=== PATIENT | female | born 1980 | race Hispanic/Latino ===

== ENCOUNTER 2018-01-13 11:26 | Inpatient (IN) | payer MEDICAID ==
[2018-01-13] MEDS ORDERED: BRETHINE SUB-Q PRN (12:52)
[2018-01-13] MEDS ORDERED: XYLOCAINE 2% INFILTRATI ONE (12:52)
[2018-01-13] MEDS ORDERED: PITOCin/NS 20 UNIT/1000ML DRIP 20 UNITS/1,000 ML BAG IV SCH (13:00)
[2018-01-13] MEDS ORDERED: PITOCin/NS 30 UNIT/500ML 30 UNITS/500 ML BAG IV SCH (13:00)
--- NOTE | 2018-01-13 13:02 | History and Physical Report ---
History of Present Illness Date of examination: 01/13/18 Date of admission: 01/13/18 11:26 Chief complaint: Leaking of fluid from vagina since 10:16 am. History of present illness: 37 year old female presents to L&D for complaint of leaking "split pea" fluid from vagina since 10:16 this morning. Patient reports contractions started shortly after the leaking of fluid. Patient denies vaginal bleeding. Patient has received care at [facility] and records are available. LMP 04/21/17. EDC 01/26/18. EGA 38 weeks, 1 day gestation. has been complicated by the following: Late entry to care, advanced maternal age (age 37 years), breast cancer survivor (had double mastectomy and chemo in 2011; sees specialist regularly). labs are as follows: A+, antibody screen negative, pap normal, rubella immune, RPR nonreactive, hepatitis B surface antigen negative, HIV negative, hemoglobin electrophoresis AA, gonorrhea negative, chlamydia negative, Informaseq negative, sugar test 128, GBS negative. 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 denies: alcohol abuse, prescription drug abuse, IV drug use - Obstetrical History Expected Date of Delivery: 01/26/18 Actual Gestation: 38 Week(s) 1 Day(s) : 2 Para: 0 Hx # Term Pregnancies: 1 Number of Pregnancies: 0 Spontaneous Abortions: 1 Induced : 0 Number of Living Children: 0 Medications and Allergies Allergies Allergy/AdvReac Type Severity Reaction Status Date / Time No Known Allergies Allergy Verified 01/13/18 12:35 Review of Systems All systems: negative (leaking of "pea soup" fluid from vagina) - Physical Exam Cardiovascular: Regular rate, Normal S1, Normal S2 Lungs: Positive: Clear to auscultation Abdomen: Positive: normal appearance, soft. Negative: distention, tenderness, guarding, rigidity Genitourinary (Female): Positive: normal external genitalia, normal perenium. Negative: perineal/vulvar lesions Vagina: Positive: other (small amount of greenish brown amniotic fluid noted in vagina; fern test positive) Uterus: Positive: enlarged. Negative: nodular, tender Anus/Rectum: Positive: normal perianal skin Extremities: Positive: normal. Negative: tenderness, edema - Obstetrical FHR: category 1 Uterine Contraction Monitor Mode: Palpation Cervical Dilatation: 2 Cervical Effacement Percentage: 80 station: -2 Uterine Contraction Pattern: Irregular Uterine Contraction Intensity: Mild Results All other labs normal. Assessment and Plan A: at 38 weeks, 1 day gestation. Spontaneous rupture of membranes, meconium. GBS negative. P: Admit. Augment labor. Anticipate vaginal delivery. Discussed with patient risks and benefits of Pitocin augmentation of labor. Patient consented to Pitocin augmentation of labor.
[2018-01-13] MEDS: LACTATED RINGERS 1,000 ML IV SCH ×3 (13:42→20:57)
[2018-01-13 14:00] LABS: Hematocrit 32.7 % (30.3-42.9); Hemoglobin 10.7 gm/dl (10.1-14.3); Mean Corpuscular HGB Conc 33 % (30-34); Mean Corpuscular Hemoglobin 28 pg (28-32); Mean Corpuscular Volume 85 fl (79-97); Platelet Count 262 K/mm3 (140-440); Red Blood Count 3.86 M/mm3 (3.65-5.03); Red Cell Distribution Width 14.3 % (13.2-15.2)
[2018-01-13] MEDS: SUBLIMAZE IV PRN (17:15)
[2018-01-13] MEDS ORDERED: ZOFRAN IV PRN (17:21)
[2018-01-13] MEDS ORDERED: NARCAN 2 MG/2 ML IV PRN (19:42)
--- NOTE | 2018-01-13 19:43 | Anesthesia Consultation ---
Anesthesia Consult and Med Hx Date of service: 01/13/18 - Airway Anesthetic Teeth Evaluation: Good ROM Head & Neck: Adequate Mental/Hyoid Distance: Adequate Mallampati Class: Class II Intubation Access Assessment: Probably Good - Pulmonary Exam CTA: Yes - Cardiac Exam Cardiac Exam: RRR - Pre-Operative Health Status ASA Pre-Surgery Classification: ASA1 Proposed Anesthetic Plan: Epidural, Spinal - Pulmonary Hx Smoking: No Hx Asthma: No COPD: No - Cardiovascular System Hx Hypertension: No Hx Heart Attack/AMI: No - Central Nervous System Hx Neuromuscular Disorder: No Hx Seizures: No CVA: No - Endocrine Hx Renal Disease: No Hx Liver Disease: No Hx Thyroid Disease: No - Hematic Hx Anemia: Yes
[2018-01-13] MEDS: fentaNYL-BUPIV 2 MCG/ML-0.125% 200 MCG/100 ML BAG EPIDURAL SCH (20:20)
[2018-01-14] MEDS ORDERED: XYLOCAINE MPF 2% ONE ×5 (00:13→08:30)
[2018-01-14] MEDS: SUBLIMAZE IV PRN ×2 (00:23→02:14)
--- NOTE | 2018-01-14 03:03 | Event Note ---
Date: 01/14/18 Patient became complete and rested as she was comfortable with epidural. Patient then pushed for approximately 1 hour and 30 minutes and has brought head down to +2 station. Patient reports vaginal pressure and pain and having difficulty coping with the pain. Patient experiencing exhaustion and states she is hurting too bad to push. Epidural redosed and pain medication given IV. Dr. Guevara notified to come be present for patient's due to deep variable FHR decelerations into 50s and maternal exhaustion. Will allow patient to push again when Dr. Guevara is present if OK with patient and MD. Variability remains moderate and FHR baseline normal rate.
[2018-01-14] MEDS: LACTATED RINGERS 1,000 ML IV SCH ×2 (03:53→18:00)
[2018-01-14] MEDS: fentaNYL-BUPIV 2 MCG/ML-0.125% 200 MCG/100 ML BAG EPIDURAL SCH (06:22)
[2018-01-14] MEDS ORDERED: REGLAN ONE (08:10)
[2018-01-14] MEDS ORDERED: ANCEF/STERILE WATER 2 GM/20 ML 2 GM/20 ML SYRINGE IV ONE ×2 (08:10→08:22)
[2018-01-14] MEDS ORDERED: BICITRA ONE (08:10)
[2018-01-14] MEDS ORDERED: PEPCID IV ONE ×2 (08:10→13:42)
--- NOTE | 2018-01-14 08:14 | Anesthesia Day of Surgery ---
Anesthesia Day of Surgery - Day of Surgery Patient Examined: Yes Patient H&P Reviewed: Yes Patient is NPO: Yes
--- NOTE | 2018-01-14 08:24 | Progress Note ---
Assessment and Plan - Patient Problems (1) 38 weeks gestation of Current Visit: Yes Status: Acute (2) Active labor Current Visit: Yes Status: Acute (3) Meconium in amniotic fluid Current Visit: Yes Status: Acute (4) Maternal exhaustion complicating labor and delivery Current Visit: Yes Status: Acute Plan to address problem: Patient did not want to continue pushing. She asked for a C/section. Risks, benefits, and alternatives of the procedure were discussed in detail with her such as infection, hemorrhage requiring blood transfusion, injury to the bowel, bladder and blood vessels. She expressed understanding, her questions were answered, she gave her informed consent. Continue monitoring. Anesthesia has been notified. Keep NPO. Subjective - Subjective Date of service: 01/14/18 Principal diagnosis: SIUP at 39 weeks in active labor Interval history: Patient is 37 year old , eDC 01/26/18 at 38 weeks and 2 days gestation who was admitted with SROM and early labor. She became fully dilated at around 11 PM but she did not start pushing until an hour later. During the pushing, there were occasional variables which recovered to baseline and with good beat- to-beat variability. She felt exhausted and stopped pushing for several hours. During the period of rest, tracing has been CAT1. I came to evaluate the patient. The tracing was reactive. Cervix was fully dilated and the vertex was posterior. I encouraged her to resume pushing. The head was at +1 to +2 station and she felt too exhausted to push. Kiwi vacuum was applied twice for 10 seconds. After that, the patient said that she was done pushing and asked for a C/section. She was encouraged to try a few more pushes to deliver the baby but she refused and said that she did not want to feel the pain anymore. At that time, she gave her consent for c/section. Objective - Vital Signs Vital Signs: Vital Signs - 12hr 01/13/18 01/13/18 01/13/18 20:19 20:21 20:37 Temperature Pulse Rate 74 69 72 Respiratory Rate Blood Pressure 123/70 122/55 118/69 O2 Sat by Pulse Oximetry 01/13/18 01/13/18 01/13/18 20:52 20:57 21:02 Temperature Pulse Rate 66 76 68 Respiratory Rate Blood Pressure 121/63 O2 Sat by Pulse 99 99 98 Oximetry 01/13/18 01/13/18 01/13/18 21:07 21:12 21:17 Temperature Pulse Rate 74 92 H 89 Respiratory Rate Blood Pressure 121/78 O2 Sat by Pulse 98 98 99 Oximetry 01/13/18 01/13/18 01/13/18 21:22 21:27 21:32 Temperature Pulse Rate 67 65 94 H Respiratory Rate Blood Pressure 134/69 O2 Sat by Pulse 99 99 99 Oximetry 01/13/18 01/13/18 01/13/18 21:37 21:42 21:47 Temperature Pulse Rate 86 83 78 Respiratory Rate Blood Pressure 142/66 O2 Sat by Pulse 99 98 98 Oximetry 01/13/18 01/13/18 01/13/18 21:51 21:52 21:57 Temperature Pulse Rate 87 95 H 98 H Respiratory Rate Blood Pressure 115/90 O2 Sat by Pulse 93 98 98 Oximetry 01/13/18 01/13/18 01/13/18 22:06 22:21 22:36 Temperature Pulse Rate 102 H 118 H 72 Respiratory Rate Blood Pressure 141/69 132/79 130/73 O2 Sat by Pulse Oximetry 01/13/18 01/13/18 01/13/18 22:51 23:07 23:21 Temperature Pulse Rate 75 93 H 73 Respiratory Rate Blood Pressure 129/77 135/73 136/80 O2 Sat by Pulse Oximetry 01/13/18 01/14/18 01/14/18 23:36 00:22 00:37 Temperature Pulse Rate 76 104 H 96 H Respiratory Rate Blood Pressure 143/82 168/77 159/88 O2 Sat by Pulse Oximetry 01/14/18 01/14/18 01/14/18 00:51 01:00 01:08 Temperature 98.7 F Pulse Rate 88 96 H Respiratory 24 Rate Blood Pressure 150/69 139/80 O2 Sat by Pulse Oximetry 01/14/18 01/14/18 01/14/18 02:08 02:23 02:37 Temperature Pulse Rate 79 77 69 Respiratory Rate Blood Pressure 140/78 135/72 138/75 O2 Sat by Pulse Oximetry 01/14/18 01/14/18 01/14/18 02:52 03:08 03:52 Temperature Pulse Rate 78 77 56 L Respiratory Rate Blood Pressure 115/64 125/61 210/135 O2 Sat by Pulse Oximetry 01/14/18 01/14/18 01/14/18 03:54 03:59 04:04 Temperature Pulse Rate 92 H 107 H 125 H Respiratory Rate Blood Pressure O2 Sat by Pulse 97 97 98 Oximetry 01/14/18 01/14/18 01/14/18 04:07 04:09 04:14 Temperature Pulse Rate 107 H 120 H 141 H Respiratory Rate Blood Pressure 142/70 O2 Sat by Pulse 98 97 Oximetry 01/14/18 01/14/18 01/14/18 04:21 04:36 04:52 Temperature Pulse Rate 123 H 116 H 109 H Respiratory Rate Blood Pressure 136/64 124/57 117/60 O2 Sat by Pulse Oximetry 01/14/18 01/14/18 01/14/18 05:00 05:06 05:21 Temperature 98.7 F Pulse Rate 110 H 97 H Respiratory 22 Rate Blood Pressure 110/54 119/57 O2 Sat by Pulse Oximetry 01/14/18 01/14/18 01/14/18 05:37 05:53 06:00 Temperature 98.3 F Pulse Rate 96 H 83 Respiratory 18 Rate Blood Pressure 114/55 108/53 O2 Sat by Pulse Oximetry 01/14/18 01/14/18 01/14/18 06:06 06:36 06:52 Temperature Pulse Rate 84 104 H 98 H Respiratory Rate Blood Pressure 108/55 140/74 137/69 O2 Sat by Pulse Oximetry 01/14/18 01/14/18 07:06 08:08 Temperature Pulse Rate 118 H 112 H Respiratory Rate Blood Pressure 126/60 139/83 O2 Sat by Pulse Oximetry - Exam Cardiovascular: Normal S1, Normal S2 Lungs: Clear to auscultation Vulva: both: normal FHR: category 1 Uterine Contraction Monitor Mode: External Cervical Dilatation: 10 Cervical Effacement Percentage: 100 station: +1 to +2 Uterine Contraction Pattern: Regular Uterine Contraction Intensity: Strong/Firm Deep Tendon Reflex Grade: Normal +2 - Labs Labs: Abnormal Labs 01/13/18 13:16 WBC 11.8 H Laboratory Results - last 24 hr 01/13/18 01/13/18 13:16 13:16 WBC 11.8 H RBC 3.86 Hgb 10.7 Hct 32.7 MCV 85 MCH 28 MCHC 33 RDW 14.3 Plt Count 262 Blood Type A POSITIVE Antibody Screen Negative - Results US- obstetric: report reviewed
[2018-01-14] MEDS ORDERED: DIPRIVAN 10 MG/ML IV ONE (08:48)
[2018-01-14] MEDS ORDERED: QUELICIN ONE ×2 (08:48→08:49)
[2018-01-14] MEDS ORDERED: VERSED ONE (09:07)
[2018-01-14] MEDS ORDERED: DILAUDID ONE ×2 (09:11→10:27)
[2018-01-14] MEDS ORDERED: DECADRON ONE (09:25)
[2018-01-14] MEDS ORDERED: ZOFRAN ONE (09:25)
[2018-01-14] MEDS ORDERED: MORPHINE ONE ×2 (09:40)
[2018-01-14] MEDS ORDERED: TORADOL ONE (09:52)
[2018-01-14] MEDS ORDERED: TORADOL IV PRN ×2 (09:56)
[2018-01-14] MEDS ORDERED: LANSINOH TP PRN (09:56)
[2018-01-14] MEDS ORDERED: NARCAN 0.4 MG/1 ML IV PRN ×2 (09:56→10:20)
[2018-01-14] MEDS ORDERED: ZOFRAN IV PRN (09:56)
[2018-01-14] MEDS ORDERED: TYLENOL PO PRN (09:56)
[2018-01-14] MEDS ORDERED: NACL 0.9% 1000 ML 1,000 ML ONE (09:56)
[2018-01-14] MEDS ORDERED: TUCKS PAD TP PRN (09:56)
[2018-01-14] MEDS ORDERED: LACTATED RINGERS 1,000 ML ONE (09:56)
[2018-01-14] MEDS ORDERED: SODIUM CHLORIDE FLUSH SYRINGE 10 ML IV NR ×2 (10:00→11:00)
[2018-01-14] MEDS ORDERED: PITOCin/NS 20 UNIT/1000ML DRIP 20 UNITS/1,000 ML BAG IV SCH (10:00)
[2018-01-14] MEDS ORDERED: DILAUDID IV PRN (10:20)
--- NOTE | 2018-01-14 10:51 | Post Anesthesia Evaluation ---
- Post Anesthesia Evaluation Patient Participated: Yes Airway Patent: Yes Stable Respiratory Function: Yes Nausea/Vomiting: No Temp > 96.8F: Yes Pain Manageable: Yes Adequeate Hydration: Yes Anesthesia Complications: No Block Receding Appropriately: Yes Patient on Ventilator: No
[2018-01-14] MEDS ORDERED: DILAUDID PCA 6MG/30ML IV PRN (11:00)
--- NOTE | 2018-01-14 11:34 | Operative Report ---
Operative Report Operative Report: Preoperative diagnosis: 1. SIUP at 38 weeks and 2 days gestation in active labor. 2. Maternal exhaustion. 3. Meconium amniotic fluid. Postoperative diagnosis: Same as preoperative diagnosis. Procedure: Primary low-transverse section. Surgeon: Dr. Guevara Hotel Receptionist: Sherri Boswell. Anesthesia: general EBL: 1200 cc IVF: 1500 cc of RL Urine: 100 cc clear. Complications: none Intraoperative findings: 1. Male infant delivered at 8:58 PM, Apgars 1 at 1 minute, 7 at 5 minutes, and 8 at 10 minutes, Weight 6 lbs. 13 oz. 2. Normal fallopian tubes and ovaries bilaterally. Procedure details: The risks, benefits, and alternatives of the procedure were discussed in detail with the patient which included but not limited to the risk of infection, hemorrhage requiring blood transfusion, injury to the bowel or bladder and blood vessels. The patient expressed understanding, her questions were answered , and she gave informed consent. The patient was taken to the operating room with an IV fluid infusing ringer's lactate and a Kaminski catheter in place. In the operating room, she was placed in the dorsal supine position and loaded with epidural anesthesia. Venodyne boots were placed. The abdomen was washed and she was prepared and draped in usual sterile fashion. Upon testing the abdomen, the epidural was not working and patient felt pain. The decision to proceed with general anesthesia was made. After general anesthesia was given, a Pfannenstiel skin incision was made in the lower abdomen about 2 cm above the pubic symphysis using the scalpel. This incision was carried down to the underlying fascia using the Bovie. The fascia was opened bilaterally in a curvilinear fashion using the Bovie. 2 straight Kocker clamps were used to grasp the upper edge of the fascia from which the underlying rectus abdominis muscle was dissected off using the Bovie. A similar procedure was done with lower edge of the fascia to dissect the underlying rectus abdominis muscle. The muscle was from the midline by putting. The parietal peritoneum was grasped with 2 hemostat clamps and entered sharply using Metzenbaum scissors. A quick survey of the anatomy revealed a gravid uterus, normal fallopian tubes and ovaries bilaterally. A bladder flap was created. Reynold'O retractor was placed in the incision for proper visualization. A low transverse incision was made in the lower uterine segment using the scalpel and extended bilaterally in a curvilinear fashion using bandage scissors. There was scant amount of meconium amniotic fluid as the membranes has been ruptured during the labor. The infant was found in an RADHA position with the vertex located at + 1 station. Assistance was needed to push the vertex upwards and the head was delivered atraumatically. There was nuchal cord 2 which were reduced. That was followed by the delivery of the shoulders and rest of the body at 8:58 AM. The cord was clamped 2 and cut and the infant was handed off to the waiting pediatricians. Cord gas was sent. Cord blood was collected. The infant was a male, Apgars were 1 at 1 minute, 7 at 5 minutes, and 8 at 10 minutes, weight was 6 lbs. 13 oz. The placenta was delivered manually and it was complete with a three- vessel cord. The uterine cavity was cleaned of clots and debris using dry lap sponges. The uterine incision was repaired in a running locked fashion using 0 Vicryl sutures. A second layer of imbrication was placed. The gutters were cleaned of clots and debris using dry lap sponges. After assuring adequate hemostasis, the instruments were removed from the abdominal cavity. The fascia was closed in a running fashion using 0 Vicryl sutures. The subcutaneous adipose tissue was closed with 2 chromic sutures. The skin was closed in a subcutaneous fashion using 4-0 Vicryl on a Leif needle. Sterile dressing was placed. The counts of laps, needles, sponges, and instruments were correct 2. The patient tolerated the procedure well. She was awakened from the anesthesia and taken to the recovery room in stable condition.
[2018-01-14] MEDS ORDERED: BICITRA PO ONE (13:42)
[2018-01-14] MEDS ORDERED: REGLAN IV ONE (13:42)
[2018-01-14] MEDS ORDERED: ANCEF/STERILE WATER 2 GM/20 ML 2 GM/20 ML SYRINGE IV NR (14:00)
[2018-01-14 20:54] LABS: Hematocrit 23.9 % (30.3-42.9); Hemoglobin 7.6 gm/dl (10.1-14.3)
[2018-01-15] MEDS ORDERED: MYLICON PO PRN (09:56)
[2018-01-15] MEDS ORDERED: MILK OF MAGNESIA PO PRN (09:56)
[2018-01-15] MEDS ORDERED: SENOKOT PO PRN (09:56)
[2018-01-15] MEDS: FEOSOL PO SCH (12:08)
[2018-01-15] MEDS: MOTRIN PO PRN (13:28)
[2018-01-15] MEDS: PERCOCET 5/325 PO PRN ×2 (13:28→22:12)
--- NOTE | 2018-01-15 19:18 | Progress Note ---
Assessment and Plan - Patient Problems (1) S/P primary low transverse Current Visit: Yes Status: Acute Plan to address problem: POD 1 - stable Continue routine postop orders Ambulation encouraged, as tolerated Anticipate d/c in 24 to 48 hours (2) Anemia in puerperium, baby delivered during current episode of care Current Visit: Yes Status: Acute Plan to address problem: Asymptomatic Continue iron therapy Subjective - Subjective Date of service: 01/15/18 Principal diagnosis: POD #1; s/p Primary LTCS Patient reports: appetite normal, voiding normally, pain well controlled, flatus , ambulating normally, no dizzy ambulation, no bowel movement : doing well, bottle feeding Objective - Vital Signs Latest vital signs: Vital Signs Temp Pulse Resp BP BP Pulse Ox 01/15/18 16:33 98.3 F 75 20 98/64 97 01/15/18 13:28 20 01/15/18 08:08 98.6 F 84 20 97/53 94 01/15/18 04:40 98.9 F 78 20 126/76 01/15/18 02:00 18 01/15/18 00:25 20 01/15/18 00:00 98.0 F 86 20 113/72 01/14/18 20:25 98.2 F 84 20 110/72 93 Intake and Output 01/15/18 01/15/18 01/15/18 07:59 15:59 23:59 Intake Total 1000 440 720 Output Total 500 Balance 500 440 720 Intake: IV 1000 Lactated Ringers 1,000 ml 1000 @ 125 mls/hr IV DIRECT NAGI Rx#:[id number] Oral 440 720 Output: Urine 500 Void 500 Other: Total, Intake Amount 120 360 Total, Output Amount 400 # Voids Void 2 1 - Exam Abdomen: Present: normal appearance, soft Vulva: both: normal Uterus: Present: normal, firm, fundal height at umbilicus Extremities: Present: normal - Labs Labs: Abnormal lab results 01/14/18 Range/Units 20:26 Hgb 7.6 L D (10.1-14.3) gm/dl Hct 23.9 L D (30.3-42.9) %
[2018-01-16] MEDS: PERCOCET 5/325 PO PRN ×2 (09:30→15:30)
[2018-01-16] MEDS: MOTRIN PO PRN ×2 (09:30→15:30)
[2018-01-16] MEDS: FEOSOL PO SCH (09:30)
--- NOTE | 2018-01-16 10:11 | Progress Note ---
Assessment and Plan - Patient Problems (1) S/P primary low transverse Current Visit: Yes Status: Acute Plan to address problem: POD 2- stable Continue routine postop orders Ambulation encouraged, as tolerated Anticipate discharge home today pending peds (2) Anemia in puerperium, baby delivered during current episode of care Current Visit: Yes Status: Acute Plan to address problem: Asymptomatic Continue iron therapy Subjective - Subjective Date of service: 01/16/18 Principal diagnosis: POD #2; s/p Primary LTCS Interval history: See H&P and operative note Patient reports: appetite normal, voiding normally, pain well controlled, flatus , ambulating normally, no bowel movement Gary: doing well, bottle feeding Objective - Vital Signs Latest vital signs: Vital Signs Temp Pulse Resp BP BP Pulse Ox 01/16/18 07:46 97.7 F 73 18 110/68 98 01/16/18 01:37 98.3 F 79 18 115/72 99 01/15/18 16:33 98.3 F 75 20 98/64 97 01/15/18 13:28 20 Intake and Output 01/15/18 01/16/18 01/16/18 23:59 07:59 15:59 Intake Total 720 360 Balance 720 360 Intake: Oral 720 Intake, Free Water 360 Other: Total, Intake Amount 360 # Voids Void 1 - Exam Breasts: Present: other (History of breast cancer, Bilateral masectomy, breast reconstruction. ) Cardiovascular: Present: Regular rate, Normal S1, Normal S2, No murmurs Lungs: Present: Clear to auscultation, Normal air movement Abdomen: Present: normal appearance, soft, tenderness (as expected), normal bowel sounds. Absent: distention Vulva: both: normal Uterus: Present: firm, fundal height at umbilicus Extremities: Present: normal Deep Tendon Reflex Grade: Normal +2 Incision: Present: normal ()Pressure dressing removed. LTI, closed with SQ sutures and steri strips CDI, no active drainage. ), dry, intact
--- NOTE | 2018-01-16 10:14 | Discharge Summary ---
Providers - Providers Date of Admission: 01/13/18 11:26 Date of discharge: 01/16/18 Attending physician: VINAYAK GONZALEZ MD Primary care physician: VINAYAK GONZALEZ MD Hospitalization Reason for admission: IUP at term Delivery: Procedure: primary low transverse Procedure details: See operative note Incision: normal (LTI, closed with SQ sutures and steri strips, CDI, no active drainage.), dry, intact Other procedures: none complications: none Discharge diagnosis: IUP at term delivered [place] baby: male Condition at discharge: Good Disposition: DC-01 TO HOME OR SELFCARE Plan - Discharge Medications Prescriptions: Ibuprofen [Motrin] 800 mg PO Q8HR PRN #20 tablet PRN Reason: Pain, Mild (1-3) oxyCODONE /ACETAMINOPHEN [Percocet 5/325] 1 tab PO Q4HR #14 tab - Provider Discharge Summary Activity: routine, no sex for 6 weeks, no heavy lifting 4 weeks, no strenuous exercise Diet: routine Instructions: routine Additional instructions: [] Smoking cessation referral if applicable(refer to patient education folder for contact #) [] Refer to [facility] Booklet Call your doctor immediately for: * Fever > 100.5 * Heavy vaginal bleeding ( >1 pad per hour) * Severe persistent headache * Shortness of breath * Reddened, hot, painful area to leg or breast * Drainage or odor from incision. * Keep incision clean and dry at all times and follow doctor's instructions regarding bathing/showering - Follow up plan Follow up: VNIAYAK GONZALEZ MD [Primary Care Provider] - 7 Days
[2018-01-16 16:40] VITALS: BP 123/65
== END 2018-01-16 17:15 | disposition home or self-care (01) | DRG 765 ==
LOC: LD 11:26 → OB 01-14 13:45
PROVIDERS: ADMIT Obstetrics & Gynecology; ATTEND Obstetrics & Gynecology
PROC: 10D00Z1 Extraction of Products of Conception, Low, Open Approach (ICD-10-PCS; principal; 2018-01-14)
PROC: 4A033R1 Measurement of Arterial Saturation, Peripheral, Percutaneous Approach (ICD-10-PCS; 2018-01-14)
DX: O75.81 Maternal exhaustion complicating labor and delivery (principal); D62 Acute posthemorrhagic anemia; O99.02 Anemia complicating childbirth; O77.0 Labor and delivery complicated by meconium in amniotic fluid; O76 Abnormality in fetal heart rate and rhythm complicating labor and delivery; Z3A.38 38 weeks gestation of pregnancy; Z37.0 Single live birth; Z90.10 Acquired absence of unspecified breast and nipple; Z82.49 Family history of ischemic heart disease and other diseases of the circulatory system; Z80.9 Family history of malignant neoplasm, unspecified; Z85.3 Personal history of malignant neoplasm of breast
CPT/HCPCS: 36415; 82803; 85014; 85018; 85027; 86592; 86850; 86900; 86901; J0330; J0690; J1100; J1170; J1885; J2250; J2270; J2310; J2405; J2590; J2704; J2765; J3010; J3105; J7030; J7120